=== PATIENT | female | born 1985 | race Caucasian/White ===

== ENCOUNTER 2017-06-01 16:09 | Emergency (ER) | payer OTHER | END 2017-06-01 16:35 | disposition left against medical advice (07) | LOC: UCCORT 16:09 | DX: R07.81 Pleurodynia (principal); M54.9 Dorsalgia, unspecified; Z53.21 Procedure and treatment not carried out due to patient leaving prior to being seen by health care provider ==

== ENCOUNTER 2017-10-05 09:17 | Emergency (ER) | payer OTHER ==
[2017-10-05 10:32] VITALS: BP 110/68
--- NOTE | 2017-10-05 11:03 | UC ---
Shoulder Pain HPI - HPI Summary HPI Summary: Pt c/o bilateral shoulder and upper back stiffness X 1 day. 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 Has not tried OTC NSAIDS or any other pain reliever. - History of Current Complaint Chief Complaint: UCUpperExtremity Stated Complaint: LFT SHOULDER COMPLAINT Time Seen by Provider: 10/05/17 10:49 Hx Obtained From: Patient Hx Last Menstrual Period: ~09/04/17 ?: No Onset/Duration: Sudden Onset, Lasting Hours, Still Present Timing: Constant Severity Initially: Mild Severity Currently: Moderate Location Of Pain: Is Diffuse - bilateral shoulders and upper back Pain Intensity: 8 Character: Aching, Stiffness Aggravating Factor(s): Movement Alleviating Factor(s): Rest Associated Signs And Symptoms: Positive: Negative - Risk Factors Non-Orthopedic Risk Factor: Negative DVT Risk Factors: Negative Septic Arthritis Risk Factor: Negative - Allergies/Home Medications Allergies/Adverse Reactions: Allergies Allergy/AdvReac Type Severity Reaction Status Date / Time No Known Allergies Allergy Verified 10/05/17 10:28 PMH/Surg Hx/FS Hx/Imm Hx Previously Healthy: Yes - Surgical History Surgical History: Yes Surgery Procedure, Year, and Place: Ruptured Ovarian Cyst, 2003, [place] - Family History Known Family History: Positive: Hypertension, Diabetes - Social History Occupation: Employed Full-time Lives: With Family Alcohol Use: Rare Substance Use Type: None Smoking Status (MU): Light Every Day Tobacco Smoker Type: Cigarettes Amount Used/How Often: 1/4 PPD Length of Time of Smoking/Using Tobacco: Since Age 17 Have You Smoked in the Last Year: Yes Household Exposure Type: Cigarettes Review of Systems Constitutional: Negative Skin: Negative Eyes: Negative ENT: Negative Respiratory: Negative Cardiovascular: Negative Gastrointestinal: Negative Genitourinary: Negative Motor: Negative Neurovascular: Negative Musculoskeletal: Myalgia Neurological: Negative Psychological: Negative Is Patient Immunocompromised?: No All Other Systems Reviewed And Are Negative: Yes Physical Exam Triage Information Reviewed: Yes Appearance: Well-Appearing Vital Signs: Initial Vital Signs Temp 98 F 10/05/17 10:25 Pulse 72 10/05/17 10:25 Resp 16 10/05/17 10:25 BP 110/68 10/05/17 10:25 Pulse Ox 98 10/05/17 10:25 Vital Signs Reviewed: Yes Eye Exam: Normal ENT: Positive: Hearing grossly normal Respiratory Exam: Normal Musculoskeletal Exam: Normal Neurological Exam: Normal Psychological Exam: Normal Skin Exam: Normal Shoulder Course/Dx - Differential Dx/Diagnosis Differential Diagnosis/HQI/PQRI: Sprain, Strain, Tendonitis Provider Diagnoses: upper back pain. bilateral shoulder pain Discharge - Sign-Out/Discharge Documenting (check all that apply): Discharge/Admit/Transfer - Discharge Plan Condition: Stable Disposition: HOME Prescriptions: Cyclobenzaprine TAB* [Flexeril 10 MG TAB*] 10 mg PO Q8H PRN #6 tab PRN Reason: Pain Patient Education Materials: Arthralgia (ED), Shoulder Pain (ED) Forms: *Work Release Referrals: [facility] [place] [facility] [place] [facility] [place]Outside] No Primary Care Phys,NOPCP [Primary Care Provider] - - Billing Disposition and Condition Condition: STABLE Disposition: Home
== END 2017-10-05 11:16 | disposition home or self-care (01) ==
LOC: UCCORT 09:17
DX: M54.6 Pain in thoracic spine (principal); M25.512 Pain in left shoulder; M25.511 Pain in right shoulder; F17.210 Nicotine dependence, cigarettes, uncomplicated
CPT/HCPCS: 99212; G0463